=== PATIENT | female | born 1980 | race Caucasian/White ===

== ENCOUNTER 2017-07-20 00:20 | Inpatient (IN) | payer MEDICAID ==
[~2017-07-20] VITALS: Ht 160 cm; Wt 91.7 kg
[2017-07-20] VITALS (7 sets, daily range): BP systolic 104–122; BP diastolic 54–74; PULSE 70–92; RESP 18–22; TEMP 97.8–98.6; O2SAT 96–98
[~2017-07-20 00:20] MED LIST: ACETAMINOPHEN 325 MG TAB PO PRN; ALPR2TAB3 PO; KETOROLAC TROMETHAMINE 30 MG/ML (IVP) VIAL IV PUSH PRN; NALOXONE HCL 0.4 MG/ML AMP IV PUSH PRN; ONDANSETRON HCL 4 MG/2 ML VIAL IVP PRN; SODIUM CHLORIDE 0.9% FLUSH 10 ML FLUSH IV FLUSH PRN
[2017-07-20] MEDS ORDERED: CLINDAMYCIN 600 MG/NS PREMIX 50 ML IV SCH (01:00)
[2017-07-20] MEDS ORDERED: ALPRAZolam 0.25 MG TAB PO ONE (01:30)
[2017-07-20] MEDS ORDERED: TEMA30CA PO (01:36)
[2017-07-20] MEDS ORDERED: PAXI30TA7 PO ×2 (01:36)
[2017-07-20 06:19] LABS: AUTOMATED NEUTROPHIL # 5.8 TH/MM3 (1.8-7.7); BASOPHIL # 0.1 TH/MM3 (0-0.2); BASOPHIL % 0.6 % (0.0-2.0); EOSINOPHIL # 0.1 TH/MM3 (0-0.4); EOSINOPHIL % 0.6 % (0.0-4.0); HEMATOCRIT 36.4 % (35.0-46.0); HEMOGLOBIN 11.9 GM/DL (11.6-15.3); LYMPH % 33.1 % (9.0-44.0); LYMPHOCYTE # 3.3 TH/MM3 (1.0-4.8); MEAN CELL VOLUME 88.3 FL (80.0-100.0); MEAN CORPUSCULAR HEMOGLOBIN 28.8 PG (27.0-34.0); MEAN CORPUSCULAR HGB CONC 32.6 % (32.0-36.0); MEAN PLATELET VOLUME 7.6 FL (7.0-11.0); MONO % 7.7 % (0.0-8.0); MONOCYTE # 0.8 TH/MM3 (0-0.9); PLATELET COUNT 209 TH/MM3 (150-450); RED BLOOD COUNT 4.12 MIL/MM3 (4.00-5.30); RED CELL DISTRIBUTION WIDTH 12.2 % (11.6-17.2); WHITE BLOOD COUNT 10.1 TH/MM3 (4.0-11.0)
[2017-07-20 06:37] LABS: CREATININE 0.44 MG/DL (0.50-1.00)
[2017-07-20] MEDS ORDERED: SODIUM CHLORIDE 0.9% FLUSH 10 ML FLUSH IV FLUSH SCH ×2 (09:00→21:00)
[2017-07-20] MEDS ORDERED: SODIUM CHLOR 0.9% 1000 ML INJ 1,000 ML IV SCH (09:10)
[2017-07-20] MEDS ORDERED: oxyCODONE/ACETAMINOPHEN 10 MG/325 MG TAB PO PRN (09:15)
[2017-07-20] MEDS ORDERED: ACETAMINOPHEN 325 MG TAB PO PRN ×2 (09:15)
[2017-07-20] MEDS ORDERED: ONDANSETRON HCL 4 MG/2 ML VIAL IVP PRN (09:15)
[2017-07-20] MEDS ORDERED: SODIUM CHLORIDE 0.9% FLUSH 10 ML FLUSH IV FLUSH PRN (09:15)
[2017-07-20] MEDS ORDERED: TEMAZEPAM 15 MG CAP PO PRN (09:15)
[2017-07-20] MEDS ORDERED: MAGNESIUM HYDROXIDE SUSP 30 ML CUP PO PRN (09:15)
[2017-07-20] MEDS ORDERED: SENNOSIDES 8.6 MG TAB PO PRN (09:15)
[2017-07-20] MEDS ORDERED: NALOXONE HCL 0.4 MG/ML AMP IV PUSH PRN (09:15)
[2017-07-20] MEDS ORDERED: LACTULOSE SYRUP 20 GM/30 ML CUP PO PRN (09:15)
[2017-07-20] MEDS ORDERED: BISACODYL 10 MG SUPP RECTAL PRN (09:15)
[2017-07-20] MEDS ORDERED: MORPHINE SULFATE 2 MG/ML INJ IV PUSH PRN ×2 (09:15)
--- NOTE | 2017-07-20 09:30 | HHI.HP ---
[facility] No Primary Care Physician Admission Diagnosis Diagnoses: (1) Insomnia Diagnosis: Secondary (2) Cellulitis of groin, left Diagnosis: Principal (3) Anxiety Diagnosis: Secondary Chief Complaint: Left groin early abscess/cellulitis Travel History International Travel<30 Days: No Contact w/Intl Traveler <30 Da: No Traveled to Known Affected Are: No History of Present Illness Patient is a 36-year-old female, with a history of anxiety who presents to the emergency department for evaluation of a painful lesion on the left thigh groin area. She states she noticed this about 3 days ago. She states that she had one previously and a right thigh that ruptured and resolved on its own. This 1 did not is now been soaking it in Epsom salts and warm compresses. It has continued to get larger. And some possible fevers. She has pain in the left groin area and difficulty walking due to this pain was 8 out of 10 Upon examination the area is tender and indurated. And patient is very upset on palpation Patient was seen with the RN female in attendance Patient will be admitted for IV antibiotics Hopefully will not need surgery or drainage Hopefully this will improve on its own with antibiotics Review of Systems Constitutional: COMPLAINS OF: Fever, Chills, DENIES: Diaphoretic episodes, Fatigue, Weight gain, Weight loss, Dizziness, Change in appetite, Night Sweats Endocrine: DENIES: Abnorml menstrual pattern, Heat/cold intolerance, Polydipsia , Polyuria, Polyphagia Eyes: DENIES: Blurred vision, Diplopia, Eye inflammation, Eye pain, Vision loss , Photosensitivity, Double Vision Ears, nose, mouth, throat: DENIES: Tinnitus, Hearing loss, Vertigo, Nasal discharge, Oral lesions, Throat pain, Hoarseness, Ear Pain, Running Nose, Epistaxis, Sinus Pain, Toothache, Odynophagia Respiratory: DENIES: Apneas, Cough, Snoring, Wheezing, Hemoptysis, Sputum production, Shortness of breath Cardiovascular: DENIES: Chest pain, Palpitations, Syncope, Dyspnea on Exertion , PND, Lower Extremity Edema, Orthopnea Gastrointestinal: DENIES: Abdominal pain, Black stools, Bloody stools, Constipation, Diarrhea, Nausea, Vomiting, Difficulty Swallowing, Anorexia Genitourinary: DENIES: Abnormal vaginal bleeding, Dysmenorrhea, Dyspareunia, Sexual dysfunction, Urinary frequency, Urinary incontinence, Urgency, Hematuria , Dysuria, Nocturia, Vaginal discharge Musculoskeletal: DENIES: Joint pain, Muscle aches, Stiffness, Joint Swelling, Back pain, Neck pain Integumentary: COMPLAINS OF: Rash (Left groin cellulitis with area of tenderness probably 15-20 cm in diameter in the area of tenderness is probably 7 -10 cm in diameter), DENIES: Abnormal pigmentation, Pruritus, Nail changes, Breast masses, Breast skin changes, Nipple discharge Hematologic/lymphatic: DENIES: Bruising, Lymphadenopathy Immunologic/allergic: DENIES: Eczema, Urticaria Neurologic: COMPLAINS OF: Abnormal gait (Due to pain in left groin), DENIES: Headache, Localized weakness, Paresthesias, Seizures, Speech Problems, Tremor, Poor Balance Psychiatric: COMPLAINS OF: Anxiety, Depression, Agitation, DENIES: Confusion, Mood changes, Hallucinations, Suicidal Ideation, Homicidal Ideation, Delusions Except as stated in HPI: all other systems reviewed are Neg Past Family Social History Past Medical History Anxiety and depression Psychiatric history Past Surgical History section Hysterectomy Reported Medications Reported Meds & Active Scripts Active Reported Paxil (Paroxetine HCl) 30 Mg Tab 30 Mg PO DAILY Paxil (Paroxetine HCl) 30 Mg Tab 45 Mg PO DAILY Temazepam 30 Mg Cap 30 Mg PO HS PRN Alprazolam 2 Mg Tab 2 Mg PO Q8H PRN Allergies: Coded Allergies: No Known Allergies (Unverified , 07/20/17) Active Ordered Medications Current Medications Sodium Chloride 1,000 ml @ 100 mls/hr Q10H IV ; Start 07/21/17 at 00:45 Sodium Chloride (NS Flush) 2 ml UNSCH PRN IV FLUSH FLUSH AFTER USING IV ACCESS ; Start 07/19/17 at 21:15 Sodium Chloride (NS Flush) 2 ml BID IV FLUSH ; Start 07/20/17 at 09:00 Acetaminophen (Tylenol) 650 mg Q4H PRN PO TEMP > 100.4; Start 07/19/17 at 21:15 Ondansetron HCl (Zofran Inj) 4 mg Q6H PRN IVP NAUSEA OR VOMITING; Start at 21:15 Naloxone HCl (Narcan Inj) 0.4 mg UNSCH PRN IV PUSH SEE LABEL COMMENTS; Start at 21:15 Clindamycin/ Sodium Chloride 50 ml @ 100 mls/hr Q8H IV ; Start 07/21/17 at 01:00 ; Status Cancel Ketorolac Tromethamine (Toradol Inj) 15 mg Q6H PRN IV PUSH pain 1 - 10; Start 07/19/17 at 21:30; Stop 07/25/17 at 21:29 Clindamycin/ Sodium Chloride 50 ml @ 100 mls/hr Q8H IV Last administered on 07/20/17at 01:41; Start 07/20/17 at 01:00 Alprazolam (Xanax) 0.25 mg ONCE ONCE PO Last administered on 07/20/17at 01:48; Start 07/20/17 at 01:30; Stop 07/20/17 at 01:31; Status DC Family History Psychiatric history Social History Denies any tobacco alcohol or illicits Lives in the area locally Physical Exam Vital Signs Vital Signs Date Time Temp Pulse Resp B/P (MAP) Pulse Ox O2 Delivery O2 Flow Rate FiO2 07/20/17 08:00 97.8 92 18 116/54 (74) 98 07/20/17 00:33 98.0 84 22 104/63 (77) 96 Physical Exam GENERAL: This is a well-nourished, well-developed patient, in no apparent distress. SKIN: Patient has a left groin rash with cellulitis and area of induration approximately 7-10 cm and the whole area is at least 20 cm in diameter --the area of induration is tender on palpation HEAD: Atraumatic. Normocephalic. No temporal or scalp tenderness. EYES: Pupils equal round and reactive. Extraocular motions intact. No scleral icterus. No injection or drainage. ENT: Nose without bleeding, purulent drainage or septal hematoma. Throat without erythema, tonsillar hypertrophy or exudate. Uvula midline. Airway patent. NECK: Trachea midline. No JVD or lymphadenopathy. Supple, nontender, no meningeal signs. CARDIOVASCULAR: Regular rate and rhythm without murmurs, gallops, or rubs. S1- S2 no S3 or S4 RESPIRATORY: Clear to auscultation. Breath sounds equal bilaterally. No wheezes , rales, or rhonchi. GASTROINTESTINAL: Abdomen soft, non-tender, nondistended. No hepato-splenomegaly , or palpable masses. No guarding. MUSCULOSKELETAL: Extremities without clubbing, cyanosis, or edema. No joint tenderness, effusion, or edema noted. No calf tenderness. Negative Homans sign bilaterally. NEUROLOGICAL: Awake and alert. Cranial nerves II through XII intact. Motor and sensory grossly within normal limits. Five out of 5 muscle strength in all muscle groups. Normal speech. Groin area. Has shaved area throughout the whole groin area. Has an area of scabbing on the right thigh. On the left thigh has this area that is approximately 7-10 cm in induration and the whole area is cellulitic of about 20 cm nothing is open on the left side. Yet Insight and judgment is limited Mood and behavior is not appropriate --patient is very teary-eyed Laboratory Laboratory Tests Test 07/20/17 06:08 White Blood Count 10.1 Red Blood Count 4.12 Hemoglobin 11.9 Hematocrit 36.4 Mean Corpuscular Volume 88.3 Mean Corpuscular Hemoglobin 28.8 Mean Corpuscular Hemoglobin Concent 32.6 Red Cell Distribution Width 12.2 Platelet Count 209 Mean Platelet Volume 7.6 Neutrophils (%) (Auto) 58.0 Lymphocytes (%) (Auto) 33.1 Monocytes (%) (Auto) 7.7 Eosinophils (%) (Auto) 0.6 Basophils (%) (Auto) 0.6 Neutrophils # (Auto) 5.8 Lymphocytes # (Auto) 3.3 Monocytes # (Auto) 0.8 Eosinophils # (Auto) 0.1 Basophils # (Auto) 0.1 CBC Comment DIFF FINAL Differential Comment Blood Urea Nitrogen 10 Creatinine 0.44 Random Glucose 86 Calcium Level 8.0 Sodium Level 141 Potassium Level 4.0 Chloride Level 109 Carbon Dioxide Level 26.0 Anion Gap 6 Estimat Glomerular Filtration Rate 162 Result Diagram: 07/20/1760707/20/17607 Imaging [facility] Signed EXAM DATE/TIME: 07/19/2017 20:06 [place] COMPARISON: No previous studies available for comparison. INDICATIONS : Abscess of proximal medial thigh, left. IV CONTRAST: 85 cc Omnipaque 350 (iohexol) IV RADIATION DOSE: 24.74 CTDIvol (mGy) MEDICAL HISTORY : None SURGICAL HISTORY : Hysterectomy. section. ENCOUNTER: Initial ACUITY: 3 days PAIN SCALE: 10/10 LOCATION: Left proximal upper leg TECHNIQUE: Volumetric scanning of the femur was performed. Using automated exposure control and adjustment of the mA and/or kV according to patient size, radiation dose was kept as low as reasonably achievable to obtain optimal diagnostic quality images. DICOM format image data is available electronically for review and comparison. FINDINGS: BONES: No evidence of fracture. Alignment is within normal limits. JOINTS: No evidence of joint narrowing or effusion. SOFT TISSUES: There is a focal area of induration in the subcutaneous soft tissues located in the medial proximal thigh with associated thickening of the skin. No drainable fluid collections seen. The area of induration measures up to 3.7 cm in width. No induration deep to the subcutaneous fascial plane. CONCLUSION: 1. Subcutaneous inflammatory process medial proximal thigh without drainable fluid collection. 2. The osseous structures of the thigh are radiographically intact. Caprini VTE Risk Assessment Caprini VTE Risk Assessment: No/Low Risk (score <= 1) Caprini Risk Assessment Model Point Value = 1 Point Value = 2 Point Value = 3 Point Value = 5 Age 41-60 Minor surgery BMI > 25 kg/m2 Swollen legs Varicose veins or History of unexplained or recurrent spontaneous Oral contraceptives or hormone replacement Sepsis (< 1 month) Serious lung disease, including pneumonia (< 1 month) Abnormal pulmonary function Acute myocardial infarction Congestive heart failure (< 1 month) History of inflammatory bowel disease Medical patient at bed rest Age 61-74 Arthroscopic surgery Major open surgery (> 45 min) Laparoscopic surgery (> 45 min) Malignancy Confined to bed (> 72 hours) Immobilizing plaster cast Central venous access Age >= 75 History of VTE Family history of VTE Factor V Leiden Prothrombin [id number] Lupus anticoagulant Anticardiolipin antibodies Elevated serum homocysteine Heparin-induced thrombocytopenia Other congenital or acquired thrombophilia Stroke (< 1 month) Elective arthroplasty Hip, pelvis, or leg fracture Acute spinal cord injury (< 1 month) Prophylaxis Regimen Total Risk Factor Score Risk Level Prophylaxis Regimen 0-1 Low Early ambulation 2 Moderate Order ONE of the following: *Sequential Compression Device (SCD) *Heparin 5000 units SQ BID 3-4 Higher Order ONE of the following medications: *Heparin 5000 units SQ TID *Enoxaparin/Lovenox 40 mg SQ daily (WT < 150 kg, CrCl > 30 mL/min) *Enoxaparin/Lovenox 30 mg SQ daily (WT < 150 kg, CrCl > 10-29 mL/min) *Enoxaparin/Lovenox 30 mg SQ BID (WT < 150 kg, CrCl > 30 mL/min) AND/OR *Sequential Compression Device (SCD) 5 or more Highest Order ONE of the following medications: *Heparin 5000 units SQ TID (Preferred with Epidurals) *Enoxaparin/Lovenox 40 mg SQ daily (WT < 150 kg, CrCl > 30 mL/min) *Enoxaparin/Lovenox 30 mg SQ daily (WT < 150 kg, CrCl > 10-29 mL/min) *Enoxaparin/Lovenox 30 mg SQ BID (WT < 150 kg, CrCl > 30 mL/min) AND *Sequential Compression Device (SCD) Assessment and Plan Assessment and Plan Left groin cellulitis and area of induration. the area of induration is approximately 7-10 cm. The area of cellulitis is approximately 20 cm in diameter Suspect from shaving the area.-May be a shaving folliculitis Continue on Vanco and Zosyn since the Clinda has not helped immensely YET Suspect had red man syndrome from vancomycin being run into TOO FAST Anxiety resume home Paxil and other home medications Insomnia resume home medication Pain control BENADRYL FOR ALLERGIC REACTIONS A.m. labs CBC CMP TSH free T4 hemoglobin A1c magnifies Seen with female RN in attendance DVT prophylaxis with Lovenox Code Status FULL CODE Discussed Condition With RN AND PT AND PHARMACY Physician Certification 2 Midnight Certification Type: Admission for Inpatient Services Order for Inpatient Services The services are ordered in accordance with Medicare regulations or non- Medicare payer requirements, as applicable. In the case of services not specified as inpatient-only, they are appropriately provided as inpatient services in accordance with the 2-midnight benchmark. Estimated LOS (days): 2 days is the estimated time the patient will need to remain in the hospital, assuming treatment plan goals are met and no additional complications. Post-Hospital Plan: Hoang Hutchins DO Jul 20, 2017 09:30
[2017-07-20] MEDS: FLUoxetine HCL LIQUID 20 MG/5 ML CUP PO SCH (09:40)
[2017-07-20] MEDS: ALPRAZolam 1 MG TAB PO PRN (09:40)
[2017-07-20] MEDS: VANCOMYCIN INJ 1,000 MG in SODIUM CHLOR 0.9% 250 ML INJ 250 ML IV ONE ×2 (10:00→11:39)
[2017-07-20] MEDS ORDERED: diphenhydrAMINE HCL 25 MG CAP PO PRN (11:30)
[2017-07-20] MEDS: PIPERACIL-TAZO 4.5 GM PREMIX 100 ML IV SCH ×3 (11:37→21:32)
[2017-07-20] MEDS: ENOXAPARIN SODIUM 40 MG/0.4 ML SYRINGE SQ SCH (11:38)
[2017-07-20] MEDS: DOCUSATE SODIUM 50 MG/SENNA 8.6 MG TAB PO SCH (21:33)
[2017-07-20] MEDS: oxyCODONE/ACETAMINOPHEN 5 MG/325 MG TAB PO PRN ×2 (21:33→23:20)
[2017-07-21] VITALS: BP 114/61; PULSE 73; RESP 20; TEMP 96.7; O2SAT 98
[2017-07-21] MEDS ORDERED: SODIUM CHLOR 0.9% 1000 ML INJ 1,000 ML IV SCH (00:45)
[2017-07-21] MEDS ORDERED: CLINDAMYCIN 600 MG/NS PREMIX 50 ML IV SCH (01:00)
[2017-07-21] MEDS: PIPERACIL-TAZO 4.5 GM PREMIX 100 ML IV SCH (05:30)
[2017-07-21 06:43] LABS: AUTOMATED NEUTROPHIL # 2.9 TH/MM3 (1.8-7.7); BASOPHIL % 0.2 % (0.0-2.0); EOSINOPHIL # 0.1 TH/MM3 (0-0.4); EOSINOPHIL % 1.1 % (0.0-4.0); HEMATOCRIT 36.3 % (35.0-46.0); HEMOGLOBIN 12.3 GM/DL (11.6-15.3); LYMPH % 47.7 % (9.0-44.0); LYMPHOCYTE # 3.1 TH/MM3 (1.0-4.8); MEAN CELL VOLUME 87.5 FL (80.0-100.0); MEAN CORPUSCULAR HEMOGLOBIN 29.7 PG (27.0-34.0); MEAN CORPUSCULAR HGB CONC 33.9 % (32.0-36.0); MEAN PLATELET VOLUME 7.5 FL (7.0-11.0); MONO % 6.2 % (0.0-8.0); MONOCYTE # 0.4 TH/MM3 (0-0.9); NEUT % 44.8 % (16.0-70.0); PLATELET COUNT 231 TH/MM3 (150-450); RED BLOOD COUNT 4.15 MIL/MM3 (4.00-5.30); RED CELL DISTRIBUTION WIDTH 12.3 % (11.6-17.2); WHITE BLOOD COUNT 6.5 TH/MM3 (4.0-11.0)
[2017-07-21 06:53] LABS: CHLORIDE 108 MEQ/L (98-107); SODIUM (NA) 140 MEQ/L (136-145)
[2017-07-21 06:57] LABS: ALBUMIN 3.1 GM/DL (3.4-5.0); BICARBONATE 24.7 MEQ/L (21.0-32.0); CALCIUM 7.9 MG/DL (8.5-10.1); GLUCOSE,RANDOM 92 MG/DL (74-106); MAGNESIUM 1.9 MG/DL (1.5-2.5)
[2017-07-21 06:58] LABS: BLOOD UREA NITROGEN 6 MG/DL (7-18)
[2017-07-21 07:00] LABS: ALT (GPT) 16 U/L (10-53); AST (GOT) 11 U/L (15-37); CREATININE 0.54 MG/DL (0.50-1.00); GLOMERULAR FILTRATION RATE 128 ML/MIN (>89)
[2017-07-21 07:01] LABS: PHOSPHORUS 3.2 MG/DL (2.5-4.9)
[2017-07-21 07:02] LABS: TOTAL BILIRUBIN ADULT 0.6 MG/DL (0.2-1.0); TOTAL PROTEIN 7.1 GM/DL (6.4-8.2)
[2017-07-21 07:03] LABS: ALKALINE PHOSPHATASE 69 U/L (45-117)
[2017-07-21 08:00] VITALS: BP 120/79; PULSE 82; RESP 19; TEMP 98.1; O2SAT 97
[2017-07-21] MEDS: FLUoxetine HCL LIQUID 20 MG/5 ML CUP PO SCH (08:59)
[2017-07-21] MEDS: DOCUSATE SODIUM 50 MG/SENNA 8.6 MG TAB PO SCH (09:00)
[2017-07-21] MEDS: ALPRAZolam 1 MG TAB PO PRN (09:04)
[2017-07-21] MEDS: ENOXAPARIN SODIUM 40 MG/0.4 ML SYRINGE SQ SCH (09:27)
--- NOTE | 2017-07-21 10:49 | HHI.PR ---
Subjective Remarks Follow-up left thigh cellulitis. Patient seen and examined, lying in bed comfortably. States she is eager to get home. Wound assessed, area with improved erythema, patient states that she was in the shower last evening and released the fluid from the wound and does appear to look better. Patient's pain is controlled. Changed to PO antibiotics. Objective Vitals Vital Signs Date Time Temp Pulse Resp B/P (MAP) Pulse Ox O2 Delivery O2 Flow Rate FiO2 07/21/17 08:00 98.1 82 19 120/79 (93) 97 07/21/17 00:00 96.7 73 20 114/61 (78) 98 07/20/17 20:54 98 21 07/20/17 20:00 98.6 80 20 122/57 (78) 96 07/20/17 16:00 98.6 76 18 119/74 (89) 98 07/20/17 15:11 98 21 07/20/17 12:00 98.3 70 18 114/65 (81) 98 I/O 07/20/17 07/20/17 07/20/17 07/21/17 07/21/17 07/21/17 07:00 15:00 23:00 07:00 15:00 23:00 Intake Total 900 ml 825 ml 350 ml 550 ml 360 ml Balance 900 ml 825 ml 350 ml 550 ml 360 ml Intake Oral 420 ml 825 ml 550 ml 360 ml IV Total 480 ml 350 ml # Voids 2 1 2 # Bowel Movements 0 0 2 Result Diagram: 07/21/17 0635 07/21/17 0635 Objective Remarks GENERAL: Well-developed, well-nourished patient in [facility]. SKIN: Warm and dry. No rash. Left thigh cellulitis assessed, mild erythema present if any, wound area is pink with minimal drainage, no pain to palpation. HEAD: Normocephalic. Atraumatic. EYES: Pupils equal and round. No scleral icterus. No injection or drainage. ENT: No nasal bleeding or discharge. Mucous membranes pink and moist. NECK: Supple. Trachea midline. CARDIOVASCULAR: Regular rate and rhythm. S1, S2 noted. No murmur appreciated. RESPIRATORY: No accessory muscle use. Clear to auscultation. Breath sounds equal bilaterally. GASTROINTESTINAL: Abdomen soft, non-tender, nondistended. Normoactive bowel sounds x4. MUSCULOSKELETAL: No obvious deformities. Extremities without clubbing, cyanosis , or edema. NEUROLOGICAL: Awake and alert. No obvious cranial nerve deficits. Motor grossly within normal limits. 5/5 muscle strength in bilateral upper and lower extremities. Normal speech. PSYCHIATRIC: Appropriate mood and affect; insight and judgment normal. A/P Problem List: (1) Insomnia ICD Code: G47.00 - Insomnia, unspecified (2) Cellulitis of groin, left ICD Code: L03.314 - Cellulitis of groin (3) Anxiety ICD Code: F41.9 - Anxiety disorder, unspecified Assessment and Plan Left groin cellulitis and area of induration suspect secondary to folliculitis Patient has been on vancomycin and Zosyn IV. Supposedly patient had an episode of "red man" syndrome yesterday after vancomycin. This is been stopped. Was previously also on clindamycin. Area assessed, wound has improved. Mild erythema at this time. No tenderness to palpation. Patient has been afebrile. No leukocytosis. Changed to PO antibiotics. Tolerating p.o. intake, denies any nausea or vomiting. Pain control, oxycodone as needed for pain scale. Anxiety, chronic: Continue home Prozac and Xanax. Insomnia resume home medication DVT prophylaxis: Lovenox. Ambulation. A1c is pending. Patient's TSH checked, elevated 6.4. Free T4 normal. Will allow patient to follow-up outpatient. This could be a reactive occurrence. Patient is understanding and agreeable. Follow up PCP upon discharge. Discharge Planning Possible discharge today depending on wound culture results. Jeny Collins Jul 21, 2017 10:49
[2017-07-21 11:25] VITALS: BP 125/79; PULSE 80; RESP 19; TEMP 98.7; O2SAT 97
[2017-07-21 12:02] LABS: FREE T4 1.17 NG/DL (0.76-1.46)
[2017-07-21] MEDS: oxyCODONE/ACETAMINOPHEN 5 MG/325 MG TAB PO PRN (12:38)
[2017-07-21] MEDS ORDERED: BACT800T5 PO (12:54)
[2017-07-21] MEDS ORDERED: CEPH-460 PO (12:54)
--- NOTE | 2017-07-21 12:54 | HHI.DCPOC ---
Discharge Care Plan Diagnosis: (1) Anxiety (2) Cellulitis of groin, left (3) Insomnia Goals to Promote Your Health * To prevent worsening of your condition and complications * To maintain your health at the optimal level Directions to Meet Your Goals Take your medications as prescribed Follow your dietary instruction Follow activity as directed Keep your appointments as scheduled Take your immunizations and boosters as scheduled If your symptoms worsen call your PCP, if no PCP go to Urgent Care Center or Emergency Room Smoking is Dangerous to Your Health. Avoid second hand smoke Call the 24-hour hour crisis hotline for domestic abuse at Jeny Collins Jul 21, 2017 12:54
[2017-07-21 16:58] LABS: HEMOGLOBIN A1C 5.3 % (4.3-6.0)
== END 2017-07-21 13:27 | disposition home or self-care (01) | DRG 603 ==
LOC: PHEDDLT 00:20 → PH3A 00:30 → OBSVTOIN 09:35
PROVIDERS: ADMIT Hospitalist; ATTEND Hospitalist
DX: L03.314 Cellulitis of groin (principal); F32.9 Major depressive disorder, single episode, unspecified; F41.9 Anxiety disorder, unspecified; G47.00 Insomnia, unspecified
CPT/HCPCS: 80048; 80053; 83036; 83735; 84100; 84439; 84443; 85025; 86403; 87070; 87147; 87186; 87205; J1650; J2543; J3370; J7050